=== PATIENT | male | born 1965 | race African-American/Black ===

== ENCOUNTER 2016-04-12 21:13 | Emergency (ER) | payer BC ==
[~2016-04-12] VITALS: Ht 185.4 cm; Wt 97.5 kg
[2016-04-12] MEDS ORDERED: MUCINEX TA600 MG/TA2 PO (21:23)
[2016-04-12] MEDS ORDERED: DAY TIME COLD-237 ML PO (21:24)
[2016-04-12 21:39] LABS: HEMATOCRIT 47.1 % (42.0-52.0); HEMOGLOBIN 15.9 gm/dL (14.0-18.0); MCH 29.7 pg (26.0-34.0); MCHC 33.7 % (28.0-37.0); MCV 88.1 fL (80.0-100.0); PLATELET COUNT 219 thou/uL (150-400); RBC 5.35 mil/uL (4.50-6.00); RDW 13.2 % (10.5-14.5); WBC 7.4 thou/uL (4.0-11.0)
[2016-04-12 21:45] LABS: MANUAL DIFF YES
[2016-04-12 21:46] LABS: CALCIUM 9.1 mg/dL (8.5-10.1); CREATININE 1.8 mg/dL (0.6-1.3)
[2016-04-12 22:34] LABS: ABSOLUTE NEUTROPHILS 5.2 thou/uL (1.4-8.2); ANISOCYTOSIS 1+; POLYCHROMASIA SLIGHT; TOTAL CELL COUNT 100
[2016-04-12 22:35] LABS: POIKILOCYTOSIS SLIGHT
[2016-04-12] MEDS ORDERED: IBUPROFEN 600600 M1 PO (22:59)
[2016-04-12 23:14] VITALS: BP 120/77
== END 2016-04-12 23:16 | disposition home or self-care (01) ==
LOC: ER 21:13
PROVIDERS: Nurse Practitioner
DX: E86.0 Dehydration (principal); R50.9 Fever, unspecified; J11.1 Influenza due to unidentified influenza virus with other respiratory manifestations; Z88.0 Allergy status to penicillin

== ENCOUNTER 2017-04-10 03:10 | Emergency (ER) | payer BC ==
[~2017-04-10] VITALS: Ht 182.9 cm; Wt 102.1 kg
[~2017-04-10 03:10] MED LIST: DAY TIME COLD-237 ML PO; IBUPROFEN 600600 M1 PO; MUCINEX TA600 MG/TA2 PO
[2017-04-10] MEDS ORDERED: NOHOMEMEDICATIONS (03:31)
[2017-04-10] MEDS ORDERED: NAPROSYN500 MG PO ×2 (04:18→05:03)
[2017-04-10] MEDS ORDERED: ROBAXIN500 MG PO ×2 (04:18→05:03)
== END 2017-04-10 07:43 | disposition home or self-care (01) ==
LOC: ER 03:10
DX: S63.681A Other sprain of right thumb, initial encounter (principal); S16.1XXA Strain of muscle, fascia and tendon at neck level, initial encounter; Z88.0 Allergy status to penicillin; V89.2XXA Person injured in unspecified motor-vehicle accident, traffic, initial encounter; Y93.I9 Activity, other involving external motion; Y92.89 Other specified places as the place of occurrence of the external cause; Y99.8 Other external cause status